=== PATIENT | female | born 1990 | race American Indian/Alaskan Native ===

== ENCOUNTER 2021-11-12 11:36 | Emergency (ER) | payer OTHER, SELFPAY ==
[2021-11-12 11:43] VITALS: BP 123/59; PULSE 88; RESP 14; TEMP 36.2; O2SAT 98; BMI 24.2
--- NOTE | 2021-11-12 11:47 | DI.US.S_ITS ---
PROCEDURE: US OB <= 14 WEEKS FETUS INDICATIONS: vaginal bleeding 7 weeks OUTSIDE/PRIOR DATING DATA: Last menstrual period (LMP): 09/22/2021. LMP-based estimated date of delivery (RD): 06/29/2022. First dating scan (date and location): 11/12/2021. Estimated date of delivery (RD) from first dating scan: 07/10/2022. TECHNIQUE: Real-time scanning was performed of the fetus and maternal pelvic organs, with image documentation. Endovaginal scanning was also performed to better visualize the fetus and maternal ovaries. COMPARISON: None. FINDINGS: Embryo: Intrauterine gestational sac measuring 0.99 cm, estimated gestational age 5 weeks 5 days. pole is not visualized at this time. A yolk sac is seen. Heart rate: Not seen at this time. Tiny subchorionic hemorrhage superior right aspect measuring at 0.3 cm. Maternal organs: Ovaries are within normal limits. Left corpus luteum. IMPRESSION: 1. Intrauterine gestational sac with estimated gestational age of 5 weeks 5 days. pole is not seen at this time. Recommend short-term follow-up OB ultrasound to document crown-rump length. 2. Tiny perigestational hemorrhage. We strive to produce accurate, complete, and clear reports of imaging services. To assist us in improving patient care, this report was composed using standard report templates and voice recognition software. Therefore, it may contain abnormal punctuation, insertions and/or omissions. Occasional wrong-word or sound-alike substitutions may occur. Though we review the report and make efforts to correct it, we do recommend that the report be read carefully in proper context to recognize any text inaccuracies. Dictated by: Kartik Marquez M.D. on 11/12/2021 at 13:14 Approved by: Kartik Marquez M.D. on 11/12/2021 at 13:18
[2021-11-12 13:05] LABS: Add Manual Diff / Slide Review NO; Basophils Absolute Auto 100 /uL (0-100); Basophils Percent Auto 0.5 % (0-2); Eosinophils Absolute Auto 400 /uL (0-450); Eosinophils Percent Auto 4.3 % (2-4); Hematocrit 39.5 % (36-46); Hemoglobin 13.8 g/dL (12.0-16.0); Lymphocytes Absolute Auto 2300 /uL (1100-4500); Lymphocytes Percent Auto 23.3 % (25-40); Mean Corpuscular HGB Conc 34.8 % (30-36); Mean Corpuscular Hemoglobin 31.1 PG (26-34); Mean Corpuscular Volume 89.3 fL (80-100); Monocytes Absolute Auto 600 /uL (0-900); Monocytes Percent Auto 5.9 % (3-14); Neutrophils Absolute Auto 6600 /uL (1500-7000); Platelet Count 225 X10^3/uL (150-400); Red Blood Cell Count 4.42 X10^6/uL (4.0-5.2); Red Cell Distribution Width 12.8 % (11.6-14.8)
[2021-11-12 13:16] LABS: Alanine Aminotransferase 28 IU/L (<35); Albumin 4.3 g/dL (3.5-5.0); Albumin Globulin Ratio 1.3 (1.0-2.8); Alkaline Phosphatase 72 U/L (38-126); Aspartate Aminotransferase 27 IU/L (14-36); BUN Creatinine Ratio 19.4 (6-22); Bilirubin Total 0.7 mg/dL (0.2-1.3); Blood Urea Nitrogen 14 mg/dL (7-17); Calcium 8.8 mg/dL (8.4-10.2); Carbon Dioxide 28 mmol/L (22-32); Chloride 104 mmol/L (98-107); Estimated Glomerular Filt Rate > 60 mL/min (>60); Globulin 3.2 g/dL (1.7-4.1); Glucose 95 mg/dL (70-100); HEMOLYSIS < 15 (0-50); Potassium 3.6 mmol/L (3.4-5.1); Sodium 139 mmol/L (137-145); Total Protein 7.5 g/dL (6.3-8.2)
[2021-11-12 13:41] LABS: HCG Quantitative /Beta subunit 13528 mIU/mL
--- NOTE | 2021-11-12 14:28 | ED_ITS ---
HPI - <Toy RubalcavaISHMAEL esqueda - Last Filed: 11/12/21 14:32> General Chief complaint: Vaginal Bleeding Stated complaint: 7 weeks /cramping/bleeding Time Seen by Provider: 11/12/21 14:09 Source: patient Mode of arrival: Ambulatory Limitations: no limitations History of Present Illness HPI Narrative: 31-year-old female, who suspect she is 7 weeks , presents emergency d epartment with mild vaginal bleeding and cramping that worsened last night. Patient reports a history of inability to maintain on multiple occasions. Patient contacted her family doctor recommended she come into the emergency department for evaluation. Patient is awaiting a referral from the [facility] for a new OBGYN at [facility]. Patient's is at the bedside. Related Data Allergies Allergy/AdvReac Type Severity Reaction Status Date / Time No Known Drug Allergies Allergy Verified 11/12/21 11:44 Review of Systems <ISHMAEL Hammond - Last Filed: 11/12/21 14:32> Review of Systems Narrative: Narrative: GENERAL: Denies chills, fatigue, fever, sweats. See HPI HEENT: Denies sinus pain, ear pain, sore throat, difficulty swallowing, dizziness. RESPIRATORY: Denies dyspnea, cough, wheezing, sputum. CARDIOVASCULAR: Denies chest pain, palpitations, edema. GASTROINTESTINAL: Denies nausea, vomiting, abdominal pain, diarrhea, constipation. : Denies dysuria, frequency, incontinence, hematuria, urinary retention, flank pain. MSK: Denies weakness, joint pain, or bony pain. SKIN: Denies rash, skin lesions, or pruritis. NEUROLOGIC: Denies weakness, dizziness, headache, numbness, confusion. PSYCHIATRIC: No concerning psychosocial issues. Exam <ISHMAEL Hammond - Last Filed: 11/12/21 14:32> Narrative Exam Narrative: Exam Narrative: GENERAL: This is a well-nourished, well-developed patient, in no acute distress HEAD: Atraumatic. Normocephalic. CARDIOVASCULAR: Regular rate and rhythm without murmurs, peripheral pulses intact, cap refill <2 sec. RESPIRATORY: Breath sounds equal and clear bilaterally. No wheezes, rales, or rhonchi. No cough. No increased respiratory effort. No accessory muscle use. GASTROINTESTINAL: Abdomen soft, non-tender, nondistended without guarding or rebound. No suprapubic pain. MSK: Moves all extremities. Normal range of motion, no clubbing or edema. Neurovascularly intact. NEURO: A&O x 3. SKIN: Warm, dry, no rashes or lesions noted. Initial Vital Signs Initial Vital Signs: Vital Signs Temperature 97.2 F L 11/12/21 11:43 Pulse Rate 88 11/12/21 11:43 Respiratory Rate 14 11/12/21 11:43 Blood Pressure 123/59 L 11/12/21 11:43 Pulse Oximetry 98 11/12/21 11:43 Oxygen Delivery Method 11/12/21 11:43 Reviewed <Shannan Finnegan DO - Last Filed: 11/13/21 08:51> Initial Vital Signs Initial Vital Signs: Vital Signs Temperature 97.2 F L 11/12/21 11:43 Pulse Rate 88 11/12/21 11:43 Respiratory Rate 14 11/12/21 11:43 Blood Pressure 123/59 L 11/12/21 11:43 Pulse Oximetry 98 11/12/21 11:43 Oxygen Delivery Method 11/12/21 11:43 Course <ISHMAEL Hammond - Last Filed: 11/12/21 14:32> Orders Ordered: ED Orders 11/12/21 11:47 US OB <= 14 weeks fetus Stat 11/12/21 12:40 ABO RH Type Stat Complete Blood Count AUTO DIFF Stat Comprehensive Metabolic Panel Stat HCG Quantitative /Beta subunit Stat Vital Signs Vital signs: Vital Signs - 8 hr 11/12/21 11:43 Temperature 97.2 F L Pulse Rate 88 Respiratory Rate 14 Blood Pressure 123/59 L Pulse Oximetry 98 Oxygen Delivery Method Room Air <Shannan Finnegan DO - Last Filed: 11/13/21 08:51> Orders Ordered: ED Orders 11/12/21 11:47 US OB <= 14 weeks fetus Stat 11/12/21 12:40 ABO RH Type Stat Complete Blood Count AUTO DIFF Stat Comprehensive Metabolic Panel Stat HCG Quantitative /Beta subunit Stat Vital Signs Vital signs: Vital Signs - 8 hr 11/12/21 11:43 Temperature 97.2 F L Pulse Rate 88 Respiratory Rate 14 Blood Pressure 123/59 L Pulse Oximetry 98 Oxygen Delivery Method Room Air MDM - OB/Uterine Contractions <ISHMAEL Hammond - Last Filed: 11/12/21 14:32> Differential Diagnosis Differential diagnosis: Likely other (Threatened ) Lab Data Result diagrams: 11/12/21 12:40 11/12/21 12:40 Labs: Lab Results 11/12/21 11/12/21 11/12/21 Range/Units 12:40 12:40 12:40 WBC 10.0 (4.5-11.0) X10^3/uL RBC 4.42 (4.0-5.2) X10^6/uL Hgb 13.8 (12.0-16.0) g/dL Hct 39.5 (36-46) % MCV 89.3 (80-100) fL MCH 31.1 (26-34) PG MCHC 34.8 (30-36) % RDW 12.8 (11.6-14.8) % Plt Count 225 (150-400) X10^3/uL Neut % (Auto) 66.0 (50-75) % Lymph % (Auto) 23.3 L (25-40) % [place] % (Auto) 5.9 (3-14) % Eos % (Auto) 4.3 H (2-4) % Baso % (Auto) 0.5 (0-2) % Neut # (Auto) 6600 (2650-0199) /uL Lymph # (Auto) 2300 (5493-6664) /uL Boone # (Auto) 600 (0-900) /uL Eos # (Auto) 400 (0-450) /uL Baso # (Auto) 100 (0-100) /uL Sodium 139 (137-145) mmol/L Potassium 3.6 (3.4-5.1) mmol/L Chloride 104 (98-107) mmol/L Carbon Dioxide 28 (22-32) mmol/L BUN 14 (7-17) mg/dL Creatinine 0.72 (0.52-1.04) mg/dL Estimated GFR > 60 (>60) mL/min BUN/Creatinine Ratio 19.4 (6-22) Glucose 95 (70-100) mg/dL Calcium 8.8 (8.4-10.2) mg/dL Total Bilirubin 0.7 (0.2-1.3) mg/dL AST 27 (14-36) IU/L ALT 28 (<35) IU/L Alkaline Phosphatase 72 (38-126) U/L Total Protein 7.5 (6.3-8.2) g/dL Albumin 4.3 (3.5-5.0) g/dL Globulin 3.2 (1.7-4.1) g/dL Albumin/Globulin Ratio 1.3 (1.0-2.8) HCG, Quant 15348 mIU/mL Blood Type O Positive Urine Dip Bedside Urine Glucose Negative Bedside Urine Bilirubin - Negative Bedside Urine Ketone - Negative Urine Specific [place] 1.025 Bedside Urine Occult Blood - Negative Bedside Urine pH 6.0 Bedside Urine Protein - Negative Bedside Urine Urobilinogen - Negative Bedside Urine Nitrite - Negative Bedside Urine Leukocytes - Negative Esterase Imaging Data 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 Procedure: US OB <= 14 weeks fetus Ordering Provider: Shannan Finnegan D.O. PROCEDURE:? US OB <= 14 WEEKS FETUS ? INDICATIONS:? vaginal bleeding 7 weeks ? OUTSIDE/PRIOR DATING DATA:? Last menstrual period (LMP):? 09/22/2021.? LMP-based estimated date of delivery (RD):? 06/29/2022.? First dating scan (date and location):? 11/12/2021.? Estimated date of delivery (RD) from first dating scan:? 07/10/2022. ? TECHNIQUE:? Real-time scanning was performed of the fetus and maternal pelvic organs, with image documentation.? Endovaginal scanning was also performed to better visualize the fetus and maternal ovaries.? ? COMPARISON:? None. ? FINDINGS:? ? Embryo:? Intrauterine gestational sac measuring 0.99 cm, estimated gestational age 5 weeks 5 days.? pole is not visualized at this time.? A yolk sac is seen. Heart rate:? Not seen at this time. ? Tiny subchorionic hemorrhage superior right aspect measuring at 0.3 cm. ? Maternal organs:? Ovaries are within normal limits.? Left corpus luteum. ? ? ? IMPRESSION:? 1. Intrauterine gestational sac with estimated gestational age of 5 weeks 5 d ays.? pole is not seen at this time.? Recommend short-term follow-up OB ultrasound to document crown-rump length.? ? 2. Tiny perigestational hemorrhage. ? ? ? We strive to produce accurate, complete, and clear reports of imaging services. To assist us in improving patient care, this report was composed using standard report templates and voice recognition software. Therefore, it may contain abnormal punctuation, insertions and/or omissions. Occasional wrong-word or sound-alike substitutions may occur. Though we review the report and make efforts to correct it, we do recommend that the report be read carefully in proper context to recognize any text inaccuracies. ? ? Dictated by: Kartik Marquez M.D. on 11/12/2021 at 13:14 ? ? Approved by: Kartik Marquez M.D. on 11/12/2021 at 13:18 ? MDM Narrative Medical decision making narrative: 31-year-old female presents emergency department with vaginal bleeding and uterine cramping since last night. History of inability to maintain a . Patient is O-positive. HCG quant at 13,000. Ultrasound reveals intrauterine 5 weeks and 5 days. Recommended pelvic rest and repeat quant hCG and ultrasound in 48 hours. Discussed plan of care and return precautions with patient and spouse, who were agreeable with course of action. <Shannan Finnegan, - Last Filed: 11/13/21 08:51> Lab Data Labs: Lab Results 11/12/21 11/12/21 11/12/21 Range/Units 12:40 12:40 12:40 WBC 10.0 (4.5-11.0) X10^3/uL RBC 4.42 (4.0-5.2) X10^6/uL Hgb 13.8 (12.0-16.0) g/dL Hct 39.5 (36-46) % MCV 89.3 (80-100) fL MCH 31.1 (26-34) PG MCHC 34.8 (30-36) % RDW 12.8 (11.6-14.8) % Plt Count 225 (150-400) X10^3/uL Neut % (Auto) 66.0 (50-75) % Lymph % (Auto) 23.3 L (25-40) % [place] % (Auto) 5.9 (3-14) % Eos % (Auto) 4.3 H (2-4) % Baso % (Auto) 0.5 (0-2) % Neut # (Auto) 6600 (8661-6537) /uL Lymph # (Auto) 2300 (4700-7187) /uL [place] # (Auto) 600 (0-900) /uL Eos # (Auto) 400 (0-450) /uL Baso # (Auto) 100 (0-100) /uL Sodium 139 (137-145) mmol/L Potassium 3.6 (3.4-5.1) mmol/L Chloride 104 (98-107) mmol/L Carbon Dioxide 28 (22-32) mmol/L BUN 14 (7-17) mg/dL Creatinine 0.72 (0.52-1.04) mg/dL Estimated GFR > 60 (>60) mL/min BUN/Creatinine Ratio 19.4 (6-22) Glucose 95 (70-100) mg/dL Calcium 8.8 (8.4-10.2) mg/dL Total Bilirubin 0.7 (0.2-1.3) mg/dL AST 27 (14-36) IU/L ALT 28 (<35) IU/L Alkaline Phosphatase 72 (38-126) U/L Total Protein 7.5 (6.3-8.2) g/dL Albumin 4.3 (3.5-5.0) g/dL Globulin 3.2 (1.7-4.1) g/dL Albumin/Globulin Ratio 1.3 (1.0-2.8) HCG, Quant 05515 mIU/mL Blood Type O Positive Urine Dip Bedside Urine Glucose Negative Bedside Urine Bilirubin - Negative Bedside Urine Ketone - Negative Urine Specific [place] 1.025 Bedside Urine Occult Blood - Negative Bedside Urine pH 6.0 Bedside Urine Protein - Negative Bedside Urine Urobilinogen - Negative Bedside Urine Nitrite - Negative Bedside Urine Leukocytes - Negative Esterase Discharge Plan Departure Patient Disposition: Home Clinical Impression: Vaginal bleeding Instructions: DI for Threatened Activity Restrictions/Additional Instructions: *You have been diagnosed with vaginal bleeding. My assessment was encouraging and your labs and tests are all normal. The ultrasound reveals that you are 5 weeks and 5 days . Your lab tests are all within normal limits for . I recommend pelvic rest and a repeat ultrasound and blood test in 48 hours. Please contact your family doctor as to where they would like you to get this testing. You are welcome to return to the emergency department for these tests. *What to do: *Please continue to take your regular medications as directed. [ ] New medication prescriptions sent to your pharmacy: [ ] [ ] New medication written as a paper prescription [x ] No new medications given *Please follow up with your primary care provider in 2-3 days, call for an a ppointment. Let them know you were seen in the Emergency Department and that we ask that you be seen in follow up. We will electronically transmit a record of today's note if your PCP is in our system *If you do not have a primary care provider please contact the [facility] Resource line at [phone]. They will ask some questions about your medical history and help get you set up with a doctor in the community. ? Return to ER if you should have any new, worsening or concerning symptoms, such as worsening pain, severe headache, confusion, chest pain, difficulty breathing, fever greater than 101 F, shaking chills, persistent vomiting to the point that you cannot drink fluids, or other new or worsening symptoms. Visit Report Forms: Patient Portal/API <Shannan Finnegan, DO - Last Filed: 11/13/21 08:51> Cosign ED Attending Jyotsnaature Attestation: I was immediately available in the department for consultation. Documentation has been reviewed. I agree with assessment and plan.
[2021-11-12 14:35] VITALS: BP 120/61; PULSE 93; RESP 18; O2SAT 98
== END 2021-11-12 14:39 | disposition home or self-care (01) ==
PROVIDERS: Emergency Medicine; Emergency Provider Registered Nurse
DX: O20.9 Hemorrhage in early pregnancy, unspecified (principal); Z3A.01 Less than 8 weeks gestation of pregnancy
CPT/HCPCS: 36415; 76801; 76817; 80053; 81003; 84702; 85025; 86900; 86901; 99283; 99284

== ENCOUNTER → 2021-11-19 17:36 | Outpatient (CLI) | payer OTHER, SELFPAY ==
[2021-11-19 18:59] LABS: HCG Quantitative /Beta subunit 47339 mIU/mL
== END ==
PROVIDERS: Referring Provider Obstetrics & Gynecology; Visit Provider Obstetrics & Gynecology
DX: O26.20 Pregnancy care for patient with recurrent pregnancy loss, unspecified trimester (principal)
CPT/HCPCS: 36415; 84702

== ENCOUNTER → 2021-11-24 10:53 | Outpatient (CLI) | payer OTHER, SELFPAY ==
--- NOTE | 2021-11-24 10:54 | DI.US.S_ITS ---
PROCEDURE: US OB <= 14 WEEKS FETUS INDICATIONS: VIABILITY OUTSIDE/PRIOR DATING DATA: Last menstrual period (LMP): 09/22/2021. LMP-based estimated date of delivery (RD): 06/29/2022. First dating scan (date and location): 11/12/2021 Estimated date of delivery (RD) from first dating scan: 07/10/2021. The calculations are made using the RD of 07/14/2022. TECHNIQUE: Real-time scanning was performed of the fetus and maternal pelvic organs, with image documentation. Endovaginal scanning was also performed to better visualize the fetus and maternal ovaries. COMPARISON: None. FINDINGS: Embryo: Fetus measuring 1 cm within a gestational sac at the uterine fundus. This corresponds to gestational age of 6 weeks 6 days. heart rate 143 beats per minute. Yolk sac demonstrated. Left corpus luteum cyst noted. Right corpus luteum unremarkable. IMPRESSION: Single living intrauterine with estimated gestational age 6 weeks 6 days. We strive to produce accurate, complete, and clear reports of imaging services. To assist us in improving patient care, this report was composed using standard report templates and voice recognition software. Therefore, it may contain abnormal punctuation, insertions and/or omissions. Occasional wrong-word or sound-alike substitutions may occur. Though we review the report and make efforts to correct it, we do recommend that the report be read carefully in proper context to recognize any text inaccuracies. Dictated by: Yahir Prabhakar M.D. on 11/24/2021 at 13:04 Approved by: Yahir Prabhakar M.D. on 11/24/2021 at 13:05
== END ==
PROVIDERS: Referring Provider Obstetrics & Gynecology; Visit Provider Obstetrics & Gynecology
DX: Z34.81 Encounter for supervision of other normal pregnancy, first trimester (principal); Z3A.01 Less than 8 weeks gestation of pregnancy
CPT/HCPCS: 76801; 76817

== ENCOUNTER → 2021-12-16 13:43 | Outpatient (CLI) | payer OTHER, SELFPAY ==
[2021-12-16 15:23] LABS: Add Manual Diff / Slide Review NO; Basophils Absolute Auto 0 /uL (0-100); Basophils Percent Auto 0.4 % (0-2); Eosinophils Absolute Auto 400 /uL (0-450); Hematocrit 37.6 % (36-46); Hemoglobin 13.1 g/dL (12.0-16.0); Lymphocytes Absolute Auto 2300 /uL (1100-4500); Lymphocytes Percent Auto 22.2 % (25-40); Mean Corpuscular Hemoglobin 30.6 PG (26-34); Mean Corpuscular Volume 87.5 fL (80-100); Monocytes Absolute Auto 700 /uL (0-900); Monocytes Percent Auto 6.9 % (3-14); Neutrophils Absolute Auto 6800 /uL (1500-7000); Neutrophils Percent Auto 66.5 % (50-75); Platelet Count 223 X10^3/uL (150-400); Red Blood Cell Count 4.29 X10^6/uL (4.0-5.2); Red Cell Distribution Width 12.9 % (11.6-14.8); White Blood Cell Count 10.3 X10^3/uL (4.5-11.0)
[2021-12-16 16:09] LABS: Hepatitis B Surface Antigen NEGATIVE s/c (NEGATIVE); Rubella Antibody IgG 12.7 IU/mL (>15)
[2021-12-16 16:23] LABS: HIV 1 & 2 Ab/Ag 4th Gen Combo NEGATIVE (NEGATIVE); Hep C Virus Ab w/Reflex Quant NEGATIVE s/c (NEGATIVE)
[2021-12-16 16:31] LABS: Appearance Urine UA CLOUDY; Bilirubin Urine UA NEGATIVE (NEGATIVE); Color Urine UA YELLOW; Glucose Urine UA NEGATIVE (Negative); Ketones Urine UA NEGATIVE (NEGATIVE); Leukocyte Esterase Urine UA NEGATIVE (NEGATIVE); Nitrite Urine UA NEGATIVE (Negative); Occult Blood Urine UA NEGATIVE (Negative); Protein Urine UA NEGATIVE (Negative); Urobilinogen Urine UA 0.2 E.U./dL (0.2)
[2021-12-17 12:18] LABS: RPR Screen Non Reactive (Non Reactive); Varicella IgG Antibody 1726 index (Immune >165)
== END ==
PROVIDERS: Referring Provider Obstetrics & Gynecology; Visit Provider Obstetrics & Gynecology
DX: Z34.81 Encounter for supervision of other normal pregnancy, first trimester (principal)
CPT/HCPCS: 36415; 80055; 81003; 86787; 86803; 86850; 86900; 86901; 87086; 87147; 87389

== ENCOUNTER → 2021-12-21 14:38 | Outpatient (CLI) | payer OTHER, SELFPAY ==
[2021-12-23 08:21] LABS: Miscellaneous to LabCorp NATERA KIT
== END ==
PROVIDERS: Referring Provider Obstetrics & Gynecology; Visit Provider Obstetrics & Gynecology
DX: Z34.81 Encounter for supervision of other normal pregnancy, first trimester (principal)
CPT/HCPCS: 36415

== ENCOUNTER → 2022-01-05 10:29 | Outpatient (CLI) | payer OTHER, SELFPAY ==
[2022-01-05 16:33] LABS: Urine N gonorrhoeae NOT DETECTED
[2022-01-05 16:47] LABS: Urine Chlamydia NOT DETECTED
== END ==
PROVIDERS: Visit Provider Obstetrics & Gynecology
DX: Z34.81 Encounter for supervision of other normal pregnancy, first trimester (principal); Z11.3 Encounter for screening for infections with a predominantly sexual mode of transmission; Z3A.12 12 weeks gestation of pregnancy
CPT/HCPCS: 87491; 87591

== ENCOUNTER → 2022-02-02 14:12 | Outpatient (CLI) | payer OTHER, SELFPAY ==
[2022-02-04 20:52] LABS: AFP Value 37.1 ng/mL (.); Insulin Dep Diabetes No (.); OSBR Risk 1IN 10000 (.); Results Report (.); Test Results *Screen Negative* (.)
== END ==
PROVIDERS: Referring Provider Obstetrics & Gynecology; Visit Provider Obstetrics & Gynecology
DX: Z34.82 Encounter for supervision of other normal pregnancy, second trimester (principal); Z3A.16 16 weeks gestation of pregnancy
CPT/HCPCS: 36415; 82105

== ENCOUNTER → 2022-03-01 15:13 | Outpatient (CLI) | payer OTHER, SELFPAY ==
--- NOTE | 2022-03-01 15:15 | DI.US.S_ITS ---
PROCEDURE: US OB >= 14 WEEKS FETUS INDICATIONS: ANATOMY OUTSIDE/PRIOR DATING DATA: Last menstrual period (LMP): 09/22/21. LMP-based estimated date of delivery (RD): 06/29/22. First dating scan (date and location): 11/24/21 Estimated date of delivery (RD) from first dating scan: 07/14/[address]: 07/14/22 TECHNIQUE: Real-time scanning was performed of the fetus, with image documentation and biometric measurements. Endovaginal scanning: Not performed COMPARISON: None. FINDINGS: General: A single living intrauterine gestation is present. Presentation: Vertex. Placenta: Placental position is anterior , without previa. Amniotic fluid index: 12.0 cm, normal range is 5-24 cm. Single deepest vertical pocket is 4.0 cm. heart rate: 136 beats per minute. Maternal cervical canal: Closed and 3.1 cm long. Normal lower limit is 2.5 cm. biometrics: Biparietal diameter: 5.1 cm, 21 weeks, two days Head circumference: 18.2 cm, 20 weeks, four days Abdominal circumference: 16.4 cm, 21 weeks, three days Femur length: 3.5 cm, 21 weeks, one day Clinically estimated gestational age: 20 weeks, five days Composite gestational age from present scan: 21 weeks, one day Estimated weight and percentile: 408 g, 73rd percentile Anatomic survey: Neuro: Ventricles are non-dilated at less than 10 mm. Cisterna magna is normal at 3-11 mm. Cerebellum is normal in size and morphology. Nuchal skin fold: Normal at less than 6 mm between 14-21 weeks gestational age. Face: Nose and lips, facial profile are normal. Spine: No evidence for spina bifida. Heart: 4-chambered heart is present, with normal ventricular outflow tracts. Diaphragm: Diaphragm is intact. Stomach: Left-sided stomach is present. Kidneys: No hydronephrosis. Normal is less than 5 mm in 2nd trimester, less than 7 mm in 3rd trimester. Cord: 3-vessel cord has orthotopic insertion. Bladder: Normal in size. Extremities: All 4 extremities identified. IMPRESSION: 1. Single living intrauterine with appropriate growth. 2. Normal anatomy. 3. Closed cervix and normal amniotic fluid volume. We strive to produce accurate, complete, and clear reports of imaging services. To assist us in improving patient care, this report was composed using standard report templates and voice recognition software. Therefore, it may contain abnormal punctuation, insertions and/or omissions. Occasional wrong-word or sound-alike substitutions may occur. Though we review the report and make efforts to correct it, we do recommend that the report be read carefully in proper context to recognize any text inaccuracies. Dictated by: Mary Velázquez M.D. on 03/02/2022 at 11:14 Approved by: Mary Velázquez M.D. on 03/02/2022 at 11:19
== END ==
PROVIDERS: Referring Provider Obstetrics & Gynecology; Visit Provider Obstetrics & Gynecology
DX: Z34.82 Encounter for supervision of other normal pregnancy, second trimester (principal); Z3A.21 21 weeks gestation of pregnancy
CPT/HCPCS: 76811

== ENCOUNTER → 2022-04-13 12:13 | Outpatient (CLI) | payer OTHER, SELFPAY ==
[2022-04-13 13:46] LABS: Hematocrit 32.9 % (36-46); Hemoglobin 11.2 g/dL (12.0-16.0)
[2022-04-13 14:14] LABS: GTT (PREG) 1 Hour PP 50gm Dose 195 mg/dL (76-139)
== END ==
PROVIDERS: Referring Provider Obstetrics & Gynecology; Visit Provider Obstetrics & Gynecology
DX: Z34.82 Encounter for supervision of other normal pregnancy, second trimester (principal); Z3A.26 26 weeks gestation of pregnancy
CPT/HCPCS: 36415; 82950; 85014; 85018

== ENCOUNTER 2022-05-18 16:00 | Outpatient (CLI) | payer OTHER, SELFPAY | END 2022-05-18 16:43 | disposition home or self-care (01) | LOC: OB 05-20 13:49 | PROVIDERS: Referring Provider Obstetrics & Gynecology; Visit Provider Obstetrics & Gynecology | DX: O24.415 Gestational diabetes mellitus in pregnancy, controlled by oral hypoglycemic drugs (principal); Z3A.31 31 weeks gestation of pregnancy | CPT/HCPCS: 59025; G0378; G0379 ==

== ENCOUNTER 2022-05-25 16:00 | Outpatient (CLI) | payer OTHER, SELFPAY | END 2022-05-25 16:37 | disposition home or self-care (01) | LOC: OB 05-27 15:53 | PROVIDERS: Referring Provider Obstetrics & Gynecology; Visit Provider Obstetrics & Gynecology | DX: O24.415 Gestational diabetes mellitus in pregnancy, controlled by oral hypoglycemic drugs (principal); Z3A.32 32 weeks gestation of pregnancy | CPT/HCPCS: 59025; G0378; G0379 ==

== ENCOUNTER 2022-05-31 14:43 | Outpatient (CLI) | payer OTHER, SELFPAY ==
--- NOTE | 2022-05-31 17:36 | PM.OBTRLD ---
Visit Information Visit Information Date of evaluation: 05/31/22 Primary OB Provider: Quin Avalos On-call OB Provider: Quin Avalos Reason for Evaluation: Yes non-stress test non-stress test reason: diabetes (Gestational, on metformin) [facility]LY [facility] Medical History (Updated 05/09/22 @ 16:18 by Quin Avalos MD) Allergies (~2013) Anxiety (~2015) Chicken pox (~1994) Depression (~2015) Eczema (~1999) Foot pain (~2019) History of recurrent miscarriages Infertility (~2017) Irregular menstrual cycle (~2017) Lipoma Ovarian cyst (~2017) PCOS (polycystic ovarian syndrome) Plantar fasciitis Shingles Surgical History (Updated 12/05/21 @ 21:46 by Yelitza Munroe) Anesthesia Tumor (~12/2011) [place] teeth extracted Family History (Updated 12/05/21 @ 21:49 by Yelitza Munroe) Father Hypertension Arrhythmia Mother Gastric cancer Grandmother Multiple sclerosis Family/Other Multiple sclerosis Grandfather Stroke Grandmother History of heart disease Grandfather Cancer Social History marital status: number of children: 0 household members: spouse and family (father and [id number]) lives independently: Yes housing: house pets and animals: Yes (1 large dog, chickens) education level: college (Associate's degree) 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[employer], 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 ) current occupational exposures/hazards: No special ana needs: No travel history: over 6 months ago seatbelt use: always water heater temp set < 120 deg: Yes working smoke detector in home: Yes fire extinguisher in home: Yes carbon monox detector in home: Yes firearms in home: Yes firearms unloaded and locked: Yes do you feel safe at home: Yes Smoking Status: Never smoker second hand exposure: Yes ([id number] smokes outside the house) alcohol intake: never substance use type: does not use during the past year weight has: remained stable well-balanced diet: daily or most days daily servings fruits/ve-4 caffeine: Yes (1-2 cups tea/day) Type(s) of exercise: bicycling (stationary bike), regular exercise, weight lifting and other (hiking) frequency: 5-6 times per week Evaluation Evaluation Baseline heart rate: 135 Variability: Moderate (11-25) monitor accelerations: Present Monitor Decelerations: Absent Status: Category l Diagnosis, Plan/Disposition Plan/Disposition Plan: Assessment: 32-year-old 8 para 0 at 33-,5/7 weeks gestation Gestational diabetes on metformin Reactive nonstress test Plan: Follow-up in 1 week OB Disposition: home
== END 2022-05-31 15:28 | disposition home or self-care (01) ==
LOC: LABOR 14:48 → OB 06-07 08:16
PROVIDERS: Referring Provider Obstetrics & Gynecology; Visit Provider Obstetrics & Gynecology
DX: O24.415 Gestational diabetes mellitus in pregnancy, controlled by oral hypoglycemic drugs (principal); Z3A.33 33 weeks gestation of pregnancy
CPT/HCPCS: 59025; G0378; G0379

== ENCOUNTER 2022-06-07 12:55 | Outpatient (CLI) | payer OTHER, SELFPAY ==
--- NOTE | 2022-06-07 13:53 | PM.OBTRLD ---
Visit Information Visit Information Date of evaluation: 06/07/22 Primary OB Provider: Quin Avalos On-call OB Provider: Lisa Zepeda Reason for Evaluation: Yes non-stress test non-stress test reason: diabetes (Metformin) and other (7 prior miscarriages) Vital Signs Vital Signs: Blood pressure 115/65, pulse 90, temperature 36.5? [facility] Medical History (Updated 06/07/22 @ 13:59 by Lisa Zepeda MD) Allergies (~2013) Anxiety (~2015) Chicken pox (~1994) Depression (~2015) Eczema (~1999) Foot pain (~2019) History of recurrent miscarriages Infertility (~2017) Irregular menstrual cycle (~2017) Lipoma Ovarian cyst (~2017) PCOS (polycystic ovarian syndrome) Plantar fasciitis Shingles Surgical History (Updated 12/05/21 @ 21:46 by Yelitza Munroe) Anesthesia Tumor (~12/2011) [place] teeth extracted Family History (Updated 12/05/21 @ 21:49 by Yelitza Munroe) Father Hypertension Arrhythmia Mother Gastric cancer Grandmother Multiple sclerosis Family/Other Multiple sclerosis Grandfather Stroke Grandmother History of heart disease Grandfather Cancer Social History marital status: number of children: 0 household members: spouse and family (father and [id number]) lives independently: Yes housing: house pets and animals: Yes (1 large dog, chickens) education level: college (Associate's degree) 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[employer], 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 ) current occupational exposures/hazards: No special ana needs: No travel history: over 6 months ago seatbelt use: always water heater temp set < 120 deg: Yes working smoke detector in home: Yes fire extinguisher in home: Yes carbon monox detector in home: Yes firearms in home: Yes firearms unloaded and locked: Yes do you feel safe at home: Yes Smoking Status: Never smoker second hand exposure: Yes ([id number] smokes outside the house) alcohol intake: never substance use type: does not use during the past year weight has: remained stable well-balanced diet: daily or most days daily servings fruits/ve-4 caffeine: Yes (1-2 cups tea/day) Type(s) of exercise: bicycling (stationary bike), regular exercise, weight lifting and other (hiking) frequency: 5-6 times per week Evaluation Evaluation Baseline heart rate: 130 Variability: Moderate (11-25) monitor accelerations: Present Monitor Decelerations: Absent Category of Tracing: Reactive Status: Category l Diagnosis, Plan/Disposition Final Diagnosis (1) 34 weeks gestation of : Status: Acute (2) Gestational diabetes: Status: Acute Plan/Disposition Plan: Reactive nonstress test keep normal OB appointment OB Disposition: home
== END 2022-06-07 13:35 | disposition home or self-care (01) ==
LOC: LABOR 15:51 → OB 06-10 13:10
PROVIDERS: Referring Provider Obstetrics & Gynecology; Visit Provider Obstetrics & Gynecology
DX: O24.415 Gestational diabetes mellitus in pregnancy, controlled by oral hypoglycemic drugs (principal); O26.23 Pregnancy care for patient with recurrent pregnancy loss, third trimester; Z3A.34 34 weeks gestation of pregnancy
CPT/HCPCS: 59025; G0378; G0379

== ENCOUNTER 2022-06-14 13:13 | Outpatient (CLI) | payer OTHER, SELFPAY ==
--- NOTE | 2022-06-14 13:47 | PM.OBTRLD ---
Visit Information Visit Information Date of evaluation: 06/14/22 Primary OB Provider: Quin Avalos On-call OB Provider: Lisa Zepeda Reason for Evaluation: Yes non-stress test non-stress test reason: diabetes (Oral glycemic control) and other (Recurring miscarriages) Vital Signs Vital Signs: Blood pressure 105/59, pulse 96 PFSH Medical History (Updated 06/14/22 @ 13:53 by Lisa Zepeda MD) Allergies (~2013) Anxiety (~2015) Chicken pox (~1994) Depression (~2015) Eczema (~1999) Foot pain (~2019) History of recurrent miscarriages Infertility (~2017) Irregular menstrual cycle (~2017) Lipoma Ovarian cyst (~2017) PCOS (polycystic ovarian syndrome) Plantar fasciitis Shingles Surgical History (Updated 12/05/21 @ 21:46 by Yelitza Munroe) Anesthesia Tumor (~12/2011) [place] teeth extracted Family History (Updated 12/05/21 @ 21:49 by Yelitza Munroe) Father Hypertension Arrhythmia Mother Gastric cancer Grandmother Multiple sclerosis Family/Other Multiple sclerosis Grandfather Stroke Grandmother History of heart disease Grandfather Cancer Social History marital status: number of children: 0 household members: spouse and family (father and [id number]) lives independently: Yes housing: house pets and animals: Yes (1 large dog, chickens) education level: college (Associate's degree) 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[email or web address], 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 ) current occupational exposures/hazards: No special ana needs: No travel history: over 6 months ago seatbelt use: always water heater temp set < 120 deg: Yes working smoke detector in home: Yes fire extinguisher in home: Yes carbon monox detector in home: Yes firearms in home: Yes firearms unloaded and locked: Yes do you feel safe at home: Yes Smoking Status: Never smoker second hand exposure: Yes ([id number] smokes outside the house) alcohol intake: never substance use type: does not use during the past year weight has: remained stable well-balanced diet: daily or most days daily servings fruits/ve-4 caffeine: Yes (1-2 cups tea/day) Type(s) of exercise: bicycling (stationary bike), regular exercise, weight lifting and other (hiking) frequency: 5-6 times per week Evaluation Evaluation Baseline heart rate: 140 Variability: Moderate (11-25) monitor accelerations: Present Contraction Frequency (minutes): 0 Category of Tracing: Reactive Status: Category l Diagnosis, Plan/Disposition Final Diagnosis (1) Gestational diabetes: Status: Acute Problem details: On metformin (2) 35 weeks gestation of : Status: Acute (3) History of recurrent miscarriages: Status: Acute Plan/Disposition Plan: Reactive nonstress test. Continue weekly nonstress tests and OB visits. OB Disposition: home
== END 2022-06-14 13:46 | disposition home or self-care (01) ==
LOC: OB 06-17 07:01
PROVIDERS: Referring Provider Specialist; Visit Provider Specialist
DX: O24.415 Gestational diabetes mellitus in pregnancy, controlled by oral hypoglycemic drugs (principal); O26.23 Pregnancy care for patient with recurrent pregnancy loss, third trimester; Z3A.35 35 weeks gestation of pregnancy
CPT/HCPCS: 59025; G0378; G0379